=== PATIENT | male | born 1990 | race Caucasian/White ===

== ENCOUNTER → 2017-05-08 | Outpatient (CLI) | payer OTHER ==
--- NOTE | 2017-05-08 15:50 | RADIOLOGY IMAGING REPORT ---
[place] [facility] [place] NAME: Yunier Husain : 1990 MR: [id number] V: [id number] EXAM DATE: ORDERING PHYSICIAN: MARI PACHECO TECHNOLOGIST: Location: [facility] Patient: Yunier Husain : 1990 Visit/Account:[id number] Date of Sevice: 05/08/2017 Scrotal ultrasound HISTORY: 26-year-old male with left testicular pain COMPARISON: None. TECHNIQUE: Barnett scale, color and Duplex imaging of the scrotum was performed. FINDINGS: Testes: Right Testicle : The right testicle is normal is size and echotexture and measures 3.8 x 1.8 x 2 .9 cm. Left Testicle : The left testicle is normal in size and echotexture and measures 3.7 x 2.3 x 2.9 cm. Symmetric and unremarkable blood flow documented by color and Duplex Doppler ultrasound. Epididymides: Right Epididymis : The right epididymal head measures 0.9 cm. Left Epididymis: The left epididymal head measures 0.9 cm. Blood flow is unremarkable in each epididymis by color Doppler ultrasound. Hydrocele: Small bilateral hydroceles are noted. Varicocele: Small left varicocele is noted measuring 3 mm IMPRESSION: 1. Normal testicles. 2. Small left varicocele. Report Dictated By: King Cantor MD at 05/08/2017 3:41 PM Report E-Signed By: King Cantor MD at 05/08/2017 3:46 PM WSN:[email or web address]
== END ==
LOC: US 14:49
PROVIDERS: ATTEND Physician Assistant
DX: I86.1 Scrotal varices (principal)
CPT/HCPCS: 76870